=== PATIENT | female | born 1940 | race Caucasian/White ===

== ENCOUNTER 2017-07-06 08:00 | Outpatient (CLI) | payer MEDICARE | END 2017-07-06 08:01 | disposition home or self-care (01) | LOC: BICMAMMO 08:00 | PROVIDERS: ATTEND Obstetrics & Gynecology | DX: Z12.31 Encounter for screening mammogram for malignant neoplasm of breast (principal) | CPT/HCPCS: 77063; G0202; 77067 ==

== ENCOUNTER 2020-01-19 09:36 | Outpatient (CLI) | payer MEDICARE ==
--- NOTE | 2020-01-19 10:31 | MMO ---
Bilateral MAMMO Bilat Screen [facility]. CLINICAL HISTORY: Patient is 79 years old and is seen for screening. The patient has the following family history of breast cancer: mother, at age 90; 2 maternal aunts and 2 2 2 2 2 2 2 cousin gender unknownsssssss. The patient has a history of malignant (generic) in the left breast at age 52. 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 VIEWS: The views performed were: bilateral craniocaudal with tomosynthesis and bilateral mediolateral oblique with tomosynthesis. FILMS COMPARED: The present examination has been compared to prior imaging studies performed at [facility] on 03/01/2008, 12/16/2009, 05/25/2015 and 07/06/2017. This study has been interpreted with the assistance of computer-aided detection. MAMMOGRAM FINDINGS: The breasts are heterogeneously dense, which could obscure a lesion on mammography. There are stable calcifications seen in both breasts. There are no suspicious masses, suspicious calcifications, or new areas of architectural distortion. IMPRESSION: THERE IS NO MAMMOGRAPHIC EVIDENCE OF MALIGNANCY. A ROUTINE FOLLOW-UP MAMMOGRAM IN 1 YEAR IS RECOMMENDED. THE RESULTS OF THIS EXAM WERE SENT TO THE PATIENT. ACR BI-RADS Category 2 - Benign finding MAMMOGRAPHY NOTE: 1. A negative mammogram report should not delay a biopsy if a dominant of clinically suspicious mass is present. 2. Approximately 10% to 15% of breast cancers are not detected by mammography. 3. Adenosis and dense breasts may obscure an underlying neoplasm. Reported by: BEENA SLAUGHTER MD Electonically Signed: [id number]
--- NOTE | 2020-01-19 12:23 | BD ---
BONE DENSITOMETRY USING DEXA: HISTORY: Postmenopausal screening for osteoporosis. FINDINGS: Lumbar Spine: BMD (g/cm2) L1 0.777 T-Score: -2.0 Z-Score: 0.4 L2 0.864 T-Score: -1.5 Z-Score: 1.1 L3 0.954 T-Score: -1.2 Z-Score: 1.6 L4 0.952 T-Score: -1.0 Z-Score: 1.8 L1-L4 0.890 T-Score: -1.4 Z-Score: 1.2 Femoral Neck: 0.614 T-Score: -2.1 Z-Score: 0.2 Total Femur: 0.882 T-Score: -0.5 Z-Score: 1.5 The 10-year fracture risk for a major osteoporotic fracture is 22% and for a hip fracture is 5.8%. Impression: Osteopenia. POS: [facility]
== END 2020-01-19 09:37 | disposition home or self-care (01) ==
LOC: BICMAMMO 09:36
PROVIDERS: ATTEND Emergency Medicine
DX: Z12.31 Encounter for screening mammogram for malignant neoplasm of breast (principal); Z13.820 Encounter for screening for osteoporosis; Z80.3 Family history of malignant neoplasm of breast; Z85.3 Personal history of malignant neoplasm of breast; Z98.890 Other specified postprocedural states; Z78.0 Asymptomatic menopausal state; M85.89 Other specified disorders of bone density and structure, multiple sites
CPT/HCPCS: 77063; 77067; 77080

== ENCOUNTER 2021-04-08 11:19 | Outpatient (CLI) | payer MEDICARE | END 2021-04-08 11:20 | disposition home or self-care (01) | LOC: BICMAMMO 11:19 | PROVIDERS: ATTEND Registered Nurse | DX: Z12.31 Encounter for screening mammogram for malignant neoplasm of breast (principal); Z80.3 Family history of malignant neoplasm of breast; Z85.3 Personal history of malignant neoplasm of breast; Z98.890 Other specified postprocedural states | CPT/HCPCS: 77063; 77067 ==

== ENCOUNTER 2022-04-06 19:45 | Inpatient (IN) | payer MEDICARE ==
[2022-04-06] MEDS ORDERED: Ondansetron ODT 4 MG TAB SL PRN (21:45)
[2022-04-06] MEDS ORDERED: Ondansetron PF 4 MG/2 ML Vial IVP PRN (21:45)
[2022-04-06 22:33] VITALS: BMI 27.0
[2022-04-06] MEDS: Acetaminophen 325 MG TAB PO PRN (23:21)
[2022-04-06] MEDS ORDERED: Acetaminophen 650 MG Suppository PR PRN (23:42)
[2022-04-07] MEDS: Acetaminophen 325 MG TAB PO PRN (07:25)
[2022-04-07] MEDS: Apixaban 5 MG TAB PO SCH ×2 (07:26→20:57)
[2022-04-07 07:28] LABS: #Basophils 0.1 thou/uL (0.0-0.2); #Eosinphils 0.2 thou/uL (0.0-0.7); #Lymphocytes 1.6 thou/uL (1.20-3.40); #Monocytes 0.5 thou/uL (0.11-0.59); #Neutrophils 2.7 thou/uL (1.40-6.50); %Basophils 1.2 % (0.0-1.0); %Eosinophils 4.8 % (0.0-10.0); %Lymphocytes 32.2 % (21.0-51.0); %Monocytes 9.2 % (0.0-10.0); %Neutrophils 52.6 % (42.0-75.0); Hemoglobin 12.9 g/dL (12.0-16.0); Mean Corpuscular HGB CONC 33.6 g/dL (32.0-36.0); Mean Corpuscular Hemoglobin 31.2 pg (27.0-31.0); Mean Corpuscular Volume 92.7 fL (78.0-98.0); Mean Platelet Volume 6.3 fL (7.4-10.4); Platelet Count 293 thou/uL (130-400); RBC Distribution Width 11.7 % (11.5-14.5); Red Blood Cell (RBC) Count 4.14 mill/uL (4.20-5.40); White Blood Cell (WBC) Count 5.1 thou/uL (4.8-10.8)
[2022-04-07 07:37] LABS: Anion Gap 16 mmol/L (10-20); BUN (Urea Nitrogen) 9 mg/dL (9.8-20.1); Calc. Creatinine Clearance 77 mL/min (70-130); Carbon Dioxide 18 mmol/L (23-31); Chloride 106 mmol/L (98-107); Estimated GFR 88; Glucose 91 mg/dL (83-110); Potassium 5.1 mmol/L (3.5-5.1); Sodium 135 mmol/L (136-145)
[2022-04-07] MEDS ORDERED: Docusate 100 MG CAP PO PRN (09:01)
[2022-04-07] MEDS ORDERED: Ibuprofen 600 MG TAB PO SCH (12:30)
[2022-04-07] MEDS ORDERED: Acetaminophen 500 MG TAB PO SCH (12:30)
[2022-04-07] MEDS ORDERED: Cholecalciferol 1,000 UNITS (25 MCG) TAB PO SCH (12:45)
[2022-04-07] MEDS ORDERED: Hydrochlorothiazide 25 MG TAB PO SCH (12:45)
[2022-04-07] MEDS ORDERED: Escitalopram Oxalate 10 mg Tablet PO SCH (12:45)
[2022-04-07] MEDS ORDERED: Losartan 25 MG TAB PO SCH (12:45)
[2022-04-07] MEDS: Polyethylene Glycol 3350 17 GM Packet PO PRN (12:54)
[2022-04-07] MEDS: Acetaminophen 500 MG TAB PO SCH (20:56)
[2022-04-07] MEDS: diphenhydrAMINE 25 MG CAP PO SCH (20:58)
[2022-04-08 06:33] LABS: Hemoglobin 13.4 g/dL (12.0-16.0); Mean Corpuscular HGB CONC 33.4 g/dL (32.0-36.0); Platelet Count 304 thou/uL (130-400); RBC Distribution Width 11.6 % (11.5-14.5); Red Blood Cell (RBC) Count 4.33 mill/uL (4.20-5.40); White Blood Cell (WBC) Count 5.5 thou/uL (4.8-10.8)
[2022-04-08 06:34] LABS: #Basophils 0.1 thou/uL (0.0-0.2); #Eosinphils 0.3 thou/uL (0.0-0.7); #Lymphocytes 1.2 thou/uL (1.20-3.40); #Monocytes 0.5 thou/uL (0.11-0.59); #Neutrophils 3.4 thou/uL (1.40-6.50); %Basophils 1.1 % (0.0-1.0); %Lymphocytes 22.7 % (21.0-51.0); %Monocytes 8.9 % (0.0-10.0); %Neutrophils 62.2 % (42.0-75.0); Mean Platelet Volume 5.9 fL (7.4-10.4)
[2022-04-08 06:54] LABS: Anion Gap 12 mmol/L (10-20); BUN (Urea Nitrogen) 10 mg/dL (9.8-20.1); Calc. Creatinine Clearance 76 mL/min (70-130); Calcium 9.3 mg/dL (7.8-10.44); Carbon Dioxide 26 mmol/L (23-31); Chloride 104 mmol/L (98-107); Estimated GFR 87; Glucose 98 mg/dL (83-110); Potassium 4.2 mmol/L (3.5-5.1); Sodium 138 mmol/L (136-145)
[2022-04-08] MEDS: Hydrochlorothiazide 25 MG TAB PO SCH (08:01)
[2022-04-08] MEDS: Escitalopram Oxalate 10 mg Tablet PO SCH (08:02)
[2022-04-08] MEDS: Cholecalciferol 1,000 UNITS (25 MCG) TAB PO SCH (08:02)
[2022-04-08] MEDS: Losartan 25 MG TAB PO SCH (08:02)
[2022-04-08] MEDS: Apixaban 5 MG TAB PO SCH ×2 (08:03→21:23)
[2022-04-08] MEDS ORDERED: ASCORBIC ACID 125 MG PO SCH ×2 (09:00)
[2022-04-08] MEDS ORDERED: Non-Formulary Item 1 EACH (Cholecalciferol (Vitamin D3) [Vitamin D3] 5,000 UNITS Capsule) PO SCH (09:00)
[2022-04-08] MEDS ORDERED: Non-Formulary Item 1 EACH (Losartan Potassium [Losartan Potassium] 50 MG Tablet) PO SCH (09:00)
[2022-04-08] MEDS ORDERED: Non-Formulary Item 1 EACH (Escitalopram Oxalate [Lexapro] 5 MG Tablet) PO SCH (09:00)
[2022-04-08] MEDS: Acetaminophen 500 MG TAB PO SCH (21:23)
[2022-04-08] MEDS: diphenhydrAMINE 25 MG CAP PO SCH (21:23)
[2022-04-08] MEDS: Polyethylene Glycol 3350 17 GM Packet PO PRN (21:30)
[2022-04-09 06:35] LABS: #Eosinphils 0.2 thou/uL (0.0-0.7); #Lymphocytes 1.7 thou/uL (1.20-3.40); #Monocytes 0.6 thou/uL (0.11-0.59); #Neutrophils 2.8 thou/uL (1.40-6.50); %Basophils 0.7 % (0.0-1.0); %Eosinophils 4.6 % (0.0-10.0); %Lymphocytes 31.5 % (21.0-51.0); %Monocytes 10.4 % (0.0-10.0); %Neutrophils 52.7 % (42.0-75.0); Hemoglobin 12.9 g/dL (12.0-16.0); Mean Corpuscular HGB CONC 31.8 g/dL (32.0-36.0); Mean Corpuscular Hemoglobin 29.6 pg (27.0-31.0); Mean Platelet Volume 5.9 fL (7.4-10.4); Platelet Count 304 thou/uL (130-400); RBC Distribution Width 11.7 % (11.5-14.5); Red Blood Cell (RBC) Count 4.37 mill/uL (4.20-5.40); White Blood Cell (WBC) Count 5.3 thou/uL (4.8-10.8)
[2022-04-09 06:55] LABS: Anion Gap 12 mmol/L (10-20); BUN (Urea Nitrogen) 12 mg/dL (9.8-20.1); Calc. Creatinine Clearance 70 mL/min (70-130); Calcium 9.4 mg/dL (7.8-10.44); Carbon Dioxide 27 mmol/L (23-31); Chloride 102 mmol/L (98-107); Estimated GFR 83; Glucose 98 mg/dL (83-110); Sodium 137 mmol/L (136-145)
[2022-04-09] MEDS: Hydrochlorothiazide 25 MG TAB PO SCH (08:33)
[2022-04-09] MEDS: Escitalopram Oxalate 10 mg Tablet PO SCH (08:33)
[2022-04-09] MEDS: Losartan 25 MG TAB PO SCH (08:33)
[2022-04-09 08:34] VITALS: BP 150/73; TEMP 98.3
[2022-04-09] MEDS: Apixaban 5 MG TAB PO SCH (08:34)
[2022-04-09] MEDS: Cholecalciferol 1,000 UNITS (25 MCG) TAB PO SCH (08:34)
[2022-04-13] MEDS ORDERED: Apixaban 5 MG TAB PO SCH (21:00)
== END 2022-04-09 16:15 | disposition home or self-care (01) | DRG 175 ==
LOC: T4-A 19:45 → OBSVTOIN 04-07 13:49
PROVIDERS: ADMIT Internal Medicine; ATTEND Internal Medicine
DX: I26.99 Other pulmonary embolism without acute cor pulmonale (principal); J96.01 Acute respiratory failure with hypoxia; I10 Essential (primary) hypertension; K44.9 Diaphragmatic hernia without obstruction or gangrene; I27.20 Pulmonary hypertension, unspecified; F32.A Depression, unspecified; I08.1 Rheumatic disorders of both mitral and tricuspid valves; Z86.711 Personal history of pulmonary embolism; Z79.01 Long term (current) use of anticoagulants; Z88.5 Allergy status to narcotic agent; Z88.2 Allergy status to sulfonamides; Z88.8 Allergy status to other drugs, medicaments and biological substances; Z79.899 Other long term (current) drug therapy; Z79.82 Long term (current) use of aspirin; Z79.51 Long term (current) use of inhaled steroids; Z90.49 Acquired absence of other specified parts of digestive tract; Z90.710 Acquired absence of both cervix and uterus; Z90.89 Acquired absence of other organs; Z98.890 Other specified postprocedural states; Z98.51 Tubal ligation status; Z85.3 Personal history of malignant neoplasm of breast
CPT/HCPCS: 36415; 80048; 81001; 85025; 93306; 93970; G0378

== ENCOUNTER 2022-09-15 12:44 | Outpatient (CLI) | payer MEDICARE | END 2022-09-15 12:45 | disposition home or self-care (01) | LOC: BICMAMMO 12:44 | PROVIDERS: ATTEND Registered Nurse | DX: Z12.31 Encounter for screening mammogram for malignant neoplasm of breast (principal); Z13.820 Encounter for screening for osteoporosis; M85.89 Other specified disorders of bone density and structure, multiple sites; Z80.3 Family history of malignant neoplasm of breast; Z78.0 Asymptomatic menopausal state; Z85.3 Personal history of malignant neoplasm of breast; Z98.890 Other specified postprocedural states | CPT/HCPCS: 77063; 77067; 77080 ==